=== PATIENT | female | born 1960 | race Caucasian/White ===

== ENCOUNTER 2022-06-21 09:55 | Outpatient (CLI) | payer BC ==
[~2022-06-21 09:55] MED LIST: Iopamidol 300 61% 100 ML VIAL FS ONE
== END 2022-06-21 09:56 | disposition home or self-care (01) ==
LOC: CSHCT 09:55
PROVIDERS: ATTEND Internal Medicine Gastroenterology
DX: K52.9 Noninfective gastroenteritis and colitis, unspecified (principal); K86.89 Other specified diseases of pancreas; R93.5 Abnormal findings on diagnostic imaging of other abdominal regions, including retroperitoneum
CPT/HCPCS: 74160; 82565

== ENCOUNTER 2022-06-28 07:30 | Outpatient (CLI) | payer BC ==
[2022-06-28] MEDS ORDERED: Iopamidol 300 61% 100 ML VIAL FS ONE (09:12)
== END 2022-06-28 07:31 | disposition home or self-care (01) ==
LOC: CSHCT 07:30
PROVIDERS: ATTEND Internal Medicine Gastroenterology
DX: K52.9 Noninfective gastroenteritis and colitis, unspecified (principal); R59.1 Generalized enlarged lymph nodes; R19.8 Other specified symptoms and signs involving the digestive system and abdomen; K66.9 Disorder of peritoneum, unspecified
CPT/HCPCS: 74177; 82565